=== PATIENT | male | born 1980 | race Caucasian/White ===

== ENCOUNTER 2018-06-02 21:58 | Emergency (ER) | payer SELFPAY ==
[2018-06-02] MEDS ORDERED: Lorazepam 1 MG TAB ONE (22:40)
== END 2018-06-02 22:59 | disposition home or self-care (01) ==
LOC: MADERS 21:58
DX: F41.9 Anxiety disorder, unspecified (principal); J45.909 Unspecified asthma, uncomplicated; I10 Essential (primary) hypertension; F17.210 Nicotine dependence, cigarettes, uncomplicated
CPT/HCPCS: 93005

== ENCOUNTER 2018-07-13 13:29 | Emergency (ER) | payer SELFPAY ==
[2018-07-13] MEDS ORDERED: Lorazepam 2 MG/ML VIAL ONE ×2 (14:20→15:16)
[2018-07-13] MEDS ORDERED: Multivit, Adult Inj 10 ML VIAL ONE (14:20)
[2018-07-13] MEDS ORDERED: Dextrose 5 %-0.45 % NaCl 1,000 ML ONE (14:20)
[2018-07-13] MEDS ORDERED: Thiamine HCl 200 MG/2 ML VIAL ONE (14:20)
[2018-07-13 14:37] LABS: #Basophils 0.1 thou/uL (0.0-0.2); #Eosinphils 0.2 thou/uL (0.0-0.7); #Lymphocytes 3.2 thou/uL (1.20-3.40); #Monocytes 0.8 thou/uL (0.11-0.59); #Neutrophils 3.9 thou/uL (1.40-6.50); %Basophils 1.8 % (0.0-1.0); %Eosinophils 1.9 % (0.0-10.0); %Lymphocytes 38.7 % (21.0-51.0); %Monocytes 10.1 % (0.0-10.0); %Neutrophils 47.5 % (42.0-75.0); Hemoglobin 16.6 g/dL (14.0-18.0); Mean Corpuscular HGB CONC 32.7 g/dL (32.0-36.0); Mean Corpuscular Hemoglobin 31.3 pg (27.0-31.0); Mean Corpuscular Volume 95.6 fL (78.0-98.0); Mean Platelet Volume 6.2 fL (7.4-10.4); Platelet Count 285 thou/uL (130-400); RBC Distribution Width 12.7 % (11.5-14.5); White Blood Cell (WBC) Count 8.1 thou/uL (4.8-10.8)
[2018-07-13 14:50] LABS: Acetaminophen Less than 6.0 mcg/mL (10.0-30.0); Alcohol 64 mg/dL (Less than 10); Salicylate Less than 8.0 mg/dL (15.0-30.0)
[2018-07-13 14:52] LABS: ALT (SGPT) 124 U/L (8-55); AST (SGOT) 101 U/L (5-34); Albumin 4.6 g/dL (3.5-5.0); Alkaline Phosphatase 66 U/L (40-150); Anion Gap 21 mmol/L (10-20); BUN (Urea Nitrogen) 9 mg/dL (8.9-20.6); Bilirubin, Total 0.8 mg/dL (0.2-1.2); Calc. Creatinine Clearance 0 mL/min (70-130); Calcium 9.4 mg/dL (7.8-10.44); Carbon Dioxide 20 mmol/L (22-29); Chloride 102 mmol/L (98-107); Estimated GFR-MDRD 75; Globulin 3.4 g/dL (2.4-3.5); Glucose 93 mg/dL (70-105); Sodium 139 mmol/L (136-145)
== END 2018-07-13 16:00 | disposition home or self-care (01) ==
LOC: MADERS 13:29
DX: F10.239 Alcohol dependence with withdrawal, unspecified (principal); F41.9 Anxiety disorder, unspecified; I10 Essential (primary) hypertension; F17.220 Nicotine dependence, chewing tobacco, uncomplicated; Y90.3 Blood alcohol level of 60-79 mg/100 ml
CPT/HCPCS: 36415; 80053; 80307; 85025; 96365; 96375; 96376; J2060; J3411; J7042

== ENCOUNTER 2018-07-18 07:25 | Emergency (ER) | payer SELFPAY ==
[2018-07-18] MEDS ORDERED: Lorazepam 2 MG/ML VIAL ONE ×2 (08:45→09:22)
== END 2018-07-18 10:15 | disposition home or self-care (01) ==
LOC: MADERS 07:25
DX: F41.9 Anxiety disorder, unspecified (principal); I10 Essential (primary) hypertension; J45.909 Unspecified asthma, uncomplicated; F17.220 Nicotine dependence, chewing tobacco, uncomplicated
CPT/HCPCS: 96374; 96376; J2060

== ENCOUNTER 2018-07-29 17:27 | Emergency (ER) | payer SELFPAY | END 2018-07-29 18:02 | disposition home or self-care (01) | LOC: MADERS 17:27 | DX: F41.9 Anxiety disorder, unspecified (principal) | CPT/HCPCS: 99283 ==

== ENCOUNTER 2018-12-17 18:12 | Emergency (ER) | payer SELFPAY ==
[2018-12-17] MEDS ORDERED: Lorazepam 2 MG/ML VIAL ONE (19:02)
== END 2018-12-17 19:54 | disposition home or self-care (01) ==
LOC: MADERS 18:12
DX: F41.9 Anxiety disorder, unspecified (principal); I10 Essential (primary) hypertension; Z87.891 Personal history of nicotine dependence; Z76.0 Encounter for issue of repeat prescription; Z79.899 Other long term (current) drug therapy
CPT/HCPCS: 96372; 99283; J2060

== ENCOUNTER 2019-05-03 19:39 | Emergency (ER) | payer SELFPAY ==
[~2019-05-03 19:39] MED LIST: Sodium Chloride 0.9% 1,000 ML BAG ONE; Sodium Chloride 0.9% 100 ML BAG ONE
[2019-05-03] MEDS ORDERED: Ondansetron PF 4 MG/2 ML Vial ONE ×2 (20:19→21:17)
[2019-05-03 20:30] LABS: Hemoglobin 16.2 g/dL (14.0-18.0); Mean Corpuscular HGB CONC 31.5 g/dL (32.0-36.0); Mean Corpuscular Hemoglobin 30.1 pg (27.0-31.0); Mean Corpuscular Volume 95.6 fL (78.0-98.0); Platelet Count 333 thou/uL (130-400); Red Blood Cell (RBC) Count 5.38 mill/uL (4.70-6.10); White Blood Cell (WBC) Count 19.8 thou/uL (4.8-10.8)
[2019-05-03] MEDS ORDERED: cefTRIAXone\\ROCEPHIN 1 GM VIAL ONE (20:40)
[2019-05-03 20:44] LABS: Anion Gap 18 mmol/L (10-20); BUN (Urea Nitrogen) 13 mg/dL (8.9-20.6); Calc. Creatinine Clearance 0 mL/min (70-130); Calcium 8.9 mg/dL (7.8-10.44); Carbon Dioxide 19 mmol/L (22-29); Chloride 102 mmol/L (98-107); Estimated GFR-MDRD 87; Glucose 117 mg/dL (70-105); Potassium 3.9 mmol/L (3.5-5.1); Sodium 135 mmol/L (136-145)
[2019-05-03 20:56] LABS: Band 15 % (5-11); Lymphocytes 21 % (21-51); MDiff Complete? YES; Monocytes 2 % (0-10); Neutrophil 62 % (42-75); Platelet Morphology Comment Appears Adequate; RBC Morphology Normal
== END 2019-05-03 21:25 | disposition home or self-care (01) ==
LOC: MADERS 19:39
DX: J02.9 Acute pharyngitis, unspecified (principal); R11.2 Nausea with vomiting, unspecified; R19.7 Diarrhea, unspecified; R42 Dizziness and giddiness; R09.81 Nasal congestion; I10 Essential (primary) hypertension; F41.9 Anxiety disorder, unspecified; F41.0 Panic disorder [episodic paroxysmal anxiety]; Z87.891 Personal history of nicotine dependence; Z79.899 Other long term (current) drug therapy
CPT/HCPCS: 80048; 85025; 87430; 87804; 96365; 96375; 96376; J0696; J2405; J3490; J7050

== ENCOUNTER 2019-06-28 08:42 | Emergency (ER) | payer SELFPAY | END 2019-06-28 09:52 | disposition home or self-care (01) | LOC: MADERS 08:42 | DX: J45.909 Unspecified asthma, uncomplicated (principal); B34.9 Viral infection, unspecified; I10 Essential (primary) hypertension; F41.0 Panic disorder [episodic paroxysmal anxiety]; Z79.899 Other long term (current) drug therapy | CPT/HCPCS: 99282 ==

== ENCOUNTER 2019-09-03 19:22 | Emergency (ER) | payer SELFPAY ==
[2019-09-03] MEDS ORDERED: NEOMYCIN-POLYMYXIN-HC EAR SUSP 200 DROP/10 ML BOT ONE (20:07)
== END 2019-09-03 20:25 | disposition home or self-care (01) ==
LOC: MADERS 19:22
DX: H60.92 Unspecified otitis externa, left ear (principal); I10 Essential (primary) hypertension; F41.0 Panic disorder [episodic paroxysmal anxiety]; F17.220 Nicotine dependence, chewing tobacco, uncomplicated; Z79.899 Other long term (current) drug therapy
CPT/HCPCS: 99282

== ENCOUNTER 2020-08-01 21:10 | Emergency (ER) | payer SELFPAY ==
[~2020-08-01 21:10] MED LIST changes: +Iopamidol 370 76% 100 ML VIAL ONE; -Sodium Chloride 0.9% 1,000 ML BAG ONE; -Sodium Chloride 0.9% 100 ML BAG ONE
[2020-08-01 21:44] LABS: #Basophils 0.2 thou/uL (0.0-0.2); #Eosinphils 0.8 thou/uL (0.0-0.7); #Lymphocytes 5.2 thou/uL (1.20-3.40); #Monocytes 1.3 thou/uL (0.11-0.59); #Neutrophils 5.6 thou/uL (1.40-6.50); %Basophils 1.4 % (0.0-1.0); %Eosinophils 6.5 % (0.0-10.0); %Lymphocytes 39.5 % (21.0-51.0); %Monocytes 9.9 % (0.0-10.0); %Neutrophils 42.7 % (42.0-75.0); Hemoglobin 16.3 g/dL (14.0-18.0); Mean Corpuscular HGB CONC 31.5 g/dL (32.0-36.0); Mean Corpuscular Hemoglobin 30.5 pg (27.0-31.0); Mean Platelet Volume 7.3 fL (7.4-10.4); Platelet Count 435 thou/uL (130-400); RBC Distribution Width 12.2 % (11.5-14.5); Red Blood Cell (RBC) Count 5.34 mill/uL (4.70-6.10); White Blood Cell (WBC) Count 13.1 thou/uL (4.8-10.8)
[2020-08-01] MEDS ORDERED: Sodium Chloride 0.9% 1,000 ML ONE ×2 (21:44→23:52)
[2020-08-01] MEDS ORDERED: Lidocaine Viscous Sol 2% 15 ml UD Cup ONE (21:44)
[2020-08-01] MEDS ORDERED: Mag-Al Plus 1200 MG/1200 MG/120 MG/30 ML UDCUP ONE (21:44)
[2020-08-01] MEDS ORDERED: Ondansetron PF 4 MG/2 ML Vial ONE (21:48)
[2020-08-01 22:03] LABS: ALT (SGPT) 28 U/L (8-55); AST (SGOT) 20 U/L (5-34); Albumin 4.8 g/dL (3.5-5.0); Alkaline Phosphatase 41 U/L (40-110); Anion Gap 20 mmol/L (10-20); BUN (Urea Nitrogen) 8 mg/dL (8.9-20.6); Bilirubin, Total 0.3 mg/dL (0.2-1.2); Calc. Creatinine Clearance 0 mL/min (70-130); Calcium 9.7 mg/dL (7.8-10.44); Carbon Dioxide 21 mmol/L (22-29); Chloride 102 mmol/L (98-107); Globulin 3.2 g/dL (2.4-3.5); Glucose 138 mg/dL (70-105); Lipase 44 U/L (8-78); Potassium 3.7 mmol/L (3.5-5.1); Sodium 139 mmol/L (136-145)
[2020-08-01] MEDS ORDERED: Promethazine HCl 25 MG/ML VIAL ONE (22:27)
[2020-08-01] MEDS ORDERED: Sodium Chloride 0.9% 100 ML ONE (22:27)
[2020-08-01] MEDS ORDERED: Fentanyl 100 MCG/2 ML VIAL ONE (22:27)
[2020-08-02] MEDS ORDERED: Fentanyl 100 MCG/2 ML VIAL ONE (00:13)
== END 2020-08-02 00:32 | disposition short-term general hospital (02) ==
LOC: MADERS 21:10
DX: K56.609 Unspecified intestinal obstruction, unspecified as to partial versus complete obstruction (principal); I10 Essential (primary) hypertension; F17.220 Nicotine dependence, chewing tobacco, uncomplicated; Z79.899 Other long term (current) drug therapy
CPT/HCPCS: 71045; 74177; 80053; 83690; 84484; 85025; 93005; 96365; 96375; 96376; J2405; J2550; J3010; J3490; J7050; Q9967

== ENCOUNTER 2021-05-07 15:28 | Emergency (ER) | payer OTHER, SELFPAY ==
[2021-05-07] MEDS ORDERED: Ibuprofen 800 MG TAB ONE (16:13)
== END 2021-05-07 16:30 | disposition home or self-care (01) ==
LOC: MADERS 15:28
DX: S82.54XA Nondisplaced fracture of medial malleolus of right tibia, initial encounter for closed fracture (principal); I10 Essential (primary) hypertension; F17.210 Nicotine dependence, cigarettes, uncomplicated; F17.220 Nicotine dependence, chewing tobacco, uncomplicated; V86.95XA Unspecified occupant of 3- or 4- wheeled all-terrain vehicle (ATV) injured in nontraffic accident, initial encounter; Z79.899 Other long term (current) drug therapy
CPT/HCPCS: 27767

== ENCOUNTER 2021-08-02 18:08 | Emergency (ER) | payer SELFPAY | END 2021-08-02 19:05 | disposition left against medical advice (07) | LOC: MADERS 18:08 | DX: Z53.21 Procedure and treatment not carried out due to patient leaving prior to being seen by health care provider (principal) ==

== ENCOUNTER 2023-09-22 18:48 | Emergency (ER) | payer BC, SELFPAY ==
[2023-09-22] MEDS ORDERED: Ipratropium/Albuterol 3 ML NEB ONE (19:19)
[2023-09-22] MEDS ORDERED: predniSONE 20 MG TAB ONE (19:19)
[2023-09-22 19:40] LABS: #Basophils 0.2 thou/uL (0.0-0.2); #Eosinphils 0.6 thou/uL (0.0-0.7); #Lymphocytes 3.4 thou/uL (1.20-3.40); #Monocytes 0.6 thou/uL (0.11-0.59); %Basophils 1.8 % (0.0-1.0); %Eosinophils 6.8 % (0.0-10.0); %Lymphocytes 38.9 % (21.0-51.0); %Monocytes 6.8 % (0.0-10.0); %Neutrophils 45.7 % (42.0-75.0); Hematocrit 46.3 % (42.0-52.0); Hemoglobin 14.9 g/dL (14.0-18.0); Mean Corpuscular HGB CONC 32.1 g/dL (32.0-36.0); Mean Corpuscular Hemoglobin 31.4 pg (27.0-31.0); Mean Corpuscular Volume 97.6 fl (78.0-98.0); Mean Platelet Volume 6.3 fL (7.4-10.4); Platelet Count 285 10x3/uL (130-400); RBC Distribution Width 11.9 % (11.5-14.5); Red Blood Cell (RBC) Count 4.74 mill/uL (4.70-6.10); White Blood Cell (WBC) Count 8.7 10x3/uL (4.8-10.8)
[2023-09-22 19:58] LABS: ALT (SGPT) 34 U/L (8-55); AST (SGOT) 26 U/L (5-34); Alkaline Phosphatase 40 U/L (40-110); Anion Gap 16 mmol/L (10-20); BUN (Urea Nitrogen) 9 mg/dL (8.9-20.6); Bilirubin, Total 0.3 mg/dL (0.2-1.2); Calc. Creatinine Clearance 0 mL/min (70-130); Carbon Dioxide 20 mmol/L (22-29); Chloride 105 mmol/L (98-107); Estimated GFR 78; Globulin 3.1 g/dL (2.4-3.5); Glucose 100 mg/dL (70-105); Potassium 3.9 mmol/L (3.5-5.1); Protein, Total 7.1 g/dL (6.0-8.3); Sodium 137 mmol/L (136-145)
[2023-09-22 19:58] LABS: Influenza A by NAA Not Detected (NotDetected); Influenza B by NAA Not Detected (NotDetected); SARS-CoV-2 NAA Rapid Test Not Detected (NotDetected)
== END 2023-09-22 20:32 | disposition home or self-care (01) ==
LOC: MADERS 18:48
DX: J45.901 Unspecified asthma with (acute) exacerbation (principal); J06.9 Acute upper respiratory infection, unspecified; I10 Essential (primary) hypertension; F17.220 Nicotine dependence, chewing tobacco, uncomplicated; Z79.899 Other long term (current) drug therapy
CPT/HCPCS: 36415; 71045; 80053; 85025; J7512; J7620

== ENCOUNTER 2025-02-14 23:15 | Emergency (ER) | payer OTHER ==
[2025-02-14] MEDS ORDERED: Dexamethasone 4 MG TAB ONE (23:52)
[2025-02-14] MEDS ORDERED: Benzonatate 100 MG CAP ONE (23:52)
== END 2025-02-15 00:01 | disposition home or self-care (01) ==
LOC: MADERS 23:15
DX: J02.9 Acute pharyngitis, unspecified (principal); I10 Essential (primary) hypertension; F17.220 Nicotine dependence, chewing tobacco, uncomplicated; Z79.899 Other long term (current) drug therapy
CPT/HCPCS: 99406; J8540